=== PATIENT | female | born 1990 | race Caucasian/White ===

== ENCOUNTER 2019-02-10 21:18 | Inpatient (IN) | payer OTHER ==
[~2019-02-10] VITALS: Ht 161.3 cm; Wt 75.3 kg
[~2019-02-10 21:18] MED LIST: AMOX-559 PO; CEP500 PO; [UNRECOGNIZED DRUG - CODE]
[2019-02-10] MEDS ORDERED: DLR(*) 1000 ML BAG 1,000 ML IV PRN (21:20)
[2019-02-10] MEDS ORDERED: LR(*) 1000 ML BAG 1,000 ML IV PRN (21:20)
[2019-02-10 23:24] VITALS: BP 116/71
[2019-02-11] MEDS ORDERED: PROMETHAZINE 25 MG/ML 1 ML AMP IVP ONE (00:30)
[2019-02-11] MEDS ORDERED: MEPERIDINE 50 MG/ML SYR IM ONE (00:30)
[2019-02-11] MEDS ORDERED: OXYTOCIN 30 UNIT/D5LR 500 ML 500 ML IV PRN ×2 (00:58→07:19)
[2019-02-11] MEDS ORDERED: FAMOTIDINE(*) 20MG/50ML PREMIX 50 ML IVPB PRN (00:58)
[2019-02-11] MEDS ORDERED: LIDOCAINE 1% LOCAL 300 MG/30ML INJ PRN (01:00)
[2019-02-11] MEDS ORDERED: FLUSH 10 ML SYR IVP PRN (01:00)
[2019-02-11] MEDS ORDERED: LIDOCAINE/SOD BICARB 8.4% SYR SC PRN (01:00)
[2019-02-11] MEDS ORDERED: METOCLOPRAMIDE 10 MG/2 ML SDV IVP PRN (01:00)
[2019-02-11] MEDS ORDERED: PENICILLIN G 5 MILLUN/100 ML 100 ML IVPB ONE (01:00)
[2019-02-11] MEDS ORDERED: fentaNYL CITR 100 MCG/2 ML AMP IVP PRN (01:00)
--- NOTE | 2019-02-11 01:41 | History & Physical ---
History of Present Illness Age of Patient: 28 : 1 Para or TPAL: 0 EDC per LMP: Feb 18, 2019 EDC per U/S: Feb 18, 2019 Estimated Gestational Age: 39.0 Chief Complaint Contractions History of Present Illness This 28 yo at 39w0 days presented to the hospital with complaint of contractions beginning early this afternoon. Starting around 5pm the contractions became more frequent and stronger in nature. She reports her course has been uncomplicated. She is positive for GBS without any known allergies to PCN. She denies OSULLIVAN, CP, SOB, F/C, N/V, RUQ pain, changes in vision, vaginal bleeding or discharge, LOF. She reports good movement. She made minimal change while being assessed in the triage area. However as she is 39w0d, she would like to stay for induction of labor. History Group B Strep Screen: Positive Obstetrical History: Past Medical History: No known past medical history Allergies: Coded Allergies: No Known Allergies (Verified Allergy, Mild, 08/18/11) Family History: Patient reports no known family medical history. Med Rec Home Meds Active Scripts Amoxicillin/Pot Clav 875-125 Mg Tab (AUGMENTIN 875-125 TABLET) 1 Each Tablet, 1 TAB PO Q12H for 7 Days, #14 TAB Prov:SUSANNE DISLA MD 05/15/17 Reported Medications Isotretinoin (Isotretinoin) 50 Gm Powder, 40 MG 05/15/17 Review of Systems All Systems Reviewed/Normal: Yes Exam General Exam Vital Signs Vital Signs Date Time Temp Pulse Resp B/P (MAP) Pulse Ox O2 Delivery O2 Flow Rate FiO2 02/10/19 23:24 98.0 64 18 116/71 (86) 94 Room Air General Apperance: Alert/Awake/No Acute Distress Cardiovascular: Regular Rate and Rhythm Respiratory: No Respiratory Distress Abdomen: Gravid - Non-Tender : Normal Musculoskeletal: No Weakness/Pain Extremities: No Cyanosis,Clubbing or Edema Integumentary: Skin Intact without Lesions or Rash Psychological: Alert & Oriented X3, Appropriate Mood & Affect Cervical Dialation: 4 Cervical Effacement (%): 70 Cervical Consistency: Soft Cervical Position: Mid Station: -1 Presentation: Vertex Uterine Contractions(Q min): 5 Uterine Contraction Strength: Moderate UC Resting Tone: Soft Fetus Feeling Movement?: Yes Heart Tones: 125 Heart Tone Variabilty: Moderate FHT Accelerations: Present FHT Decelerations: None FHT Category: I Medical Decision Making Data Points Result Diagram: 02/11/19 0131 VTE Prophylasis: Adult Deep Vein Thrombosis/Pulmonary: No Pharmacological Contraindicati: Pt at Low Risk for VTE Mechanical Contraindications: Pt at Low Risk for VTE Assessment and Plan [employer]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
[2019-02-11] MEDS: LR(*) 1000 ML BAG 1,000 ML IV SCH ×2 (01:53→08:15)
[2019-02-11 01:54] LABS: PLATELET COUNT, AUTOMATED 196 K/uL (150-450)
[2019-02-11] MEDS: PENICILLIN G 2.5 MILLUN/100 ML 100 ML IVPB SCH ×2 (05:13→09:12)
[2019-02-11] MEDS ORDERED: LIDOCAINE/PF 2% 200MG/10ML AMP 200 MG/10 ML AMPUL EPI PRN ×2 (05:25→05:50)
[2019-02-11] MEDS ORDERED: FENTANYL/ROPIVACAINE 100 ML BAG EPI PRN ×2 (05:25→05:50)
[2019-02-11] MEDS ORDERED: fentaNYL CITR 100 MCG/2 ML AMP IT PRN ×2 (05:25→05:50)
[2019-02-11] MEDS ORDERED: LIDO/EPI 2% MPF 1:200,000 20ML EPI PRN ×2 (05:25→05:50)
[2019-02-11] MEDS ORDERED: BUPIVACAINE 0.25% MPF INJ EPI PRN ×2 (05:25→05:50)
[2019-02-11] MEDS ORDERED: BUPIVACAINE 0.5% INJ 30ML VIAL EPI PRN ×2 (05:25→05:50)
[2019-02-11] MEDS ORDERED: ePHEDrine 25 MG/5 ML DISP.SYR IVP ONE (05:45)
--- NOTE | 2019-02-11 06:48 | Procedure Note ---
Anesthetic Placement Note Anesthesia Plan: CSE Permit for Anesthesia Signed: Yes Anesthesia Technique: Patient Sitting Anesthesia Prep: Chlorhexidine Interspace: L 3-4 Local Anesthetic: 1% Lidocaine, 25 Gauge Needle Amount Local - cc's: 3 Anesthesia Needle: 17g Touhy/Schliff Anesthesia Attempts: 2 Loss of Resistance: Normal Saline Depth of ИРИНА (cm): 6 Epidural Needle Placement: No CSF, No Blood, No Parasthesia Intrathecal Needle: 27 Gauge Pencan Cerebral Spinal Fluid: Yes Catheter Insertion (cm): 5 Catheter Type: Christian - Spring Wound Epidural Dressing: Tegaderm, Tape, Adhesive [place] Anesthesia Medications: Intrathecal Dose: mcg Fentanyl (10), mg Marcaine MPF (2.5), Time (0611) Epidural Test Dose: 1.5 Lido/Epi (1:200,000), Dose - mL (5), Time (0613), Negative Epidural Infusion: 0.2% Ropivicaine, With Fentanyl 2mcg/ml, Start Time: (0626) Epidural Pump Setting: Bolus Dose - mL (3), Lockout - Minutes (15), Maintenance Rate - mL/hr (6), Maximum per Hour - mL (18) ULYSSES TEMPLETON CRNA Feb 11, 2019 06:48
--- NOTE | 2019-02-11 07:32 | Labor Progress Note ---
Labor Subjective Progress Notes Feeling Movement?: Yes Vaginal Discharge/Fluid: Clear Fluid Labor Pain: Comfortable Labor Objective Vital Signs Vital Signs Date Time Temp Pulse Resp B/P (MAP) Pulse Ox O2 Delivery O2 Flow Rate FiO2 02/10/19 23:24 98.0 64 18 116/71 (86) 94 Room Air Vaginal Discharge/Fluid?: Clear Fluid Cervical Dialation: 6 Cervical Effacement (%): 80 Cervical Consistency: Soft Cervical Position: Mid Station: -1 Presentation: Vertex Uterine Contractions(Q min): 3 Uterine Contraction Strength: Moderate UC Resting Tone: Soft Fetus Heart Tones: 120 Heart Tone Variabilty: Moderate FHT Accelerations: Present FHT Decelerations: None FHT Category: I General Exam General Appearance: Alert/Awake/No Acute Distress Other Result Diagram: 02/11/19 0131 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 Will start pitocin and recheck in 2 hours or sooner as needed. S/P epidural for pain control. ) ANA AYOUB MD Feb 11, 2019 07:32
--- NOTE | 2019-02-11 09:11 | Labor Progress Note ---
Labor Subjective Progress Notes Subjective Patient doing well and without complaint. Feeling Movement?: Yes Vaginal Discharge/Fluid: Bloody Show Labor Pain: Comfortable Eyes: No Visual Disturbances Labor Objective Vital Signs Vital Signs Date Time Temp Pulse Resp B/P (MAP) Pulse Ox O2 Delivery O2 Flow Rate FiO2 02/10/19 23:24 98.0 64 18 116/71 (86) 94 Room Air Cervical Dialation: 8 Cervical Effacement (%): 90 Cervical Consistency: Soft Cervical Position: Mid Station: 0 Presentation: Vertex Uterine Contractions(Q min): 2 Uterine Contraction Strength: Moderate UC Resting Tone: Soft Fetus Heart Tones: 120 Heart Tone Variabilty: Moderate FHT Accelerations: Present FHT Decelerations: None, Variable FHT Category: II Other Result Diagram: 02/11/19 0131 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 Baby is asynclitic. Will place mom on right side and hopefully change baby's position. Will recheck in 2 hours or sooner as needed. ) ANA AYOUB MD Feb 11, 2019 09:11
--- NOTE | 2019-02-11 11:30 | OB Delivery Note ---
Delivery Note Delivery Date: Feb 11, 2019 Delivery Time: 10:49 Estimated Gestational Age(wks): 39.0 Delivery Anesthesia: Epidural Sex: Male Infant Weight (gms): 3180 Apgars: 1 Minute (9), 5 Minute (9) Repair Needed: Laceration, Vaginal (right wall), Labial (Right), 1st Degree Estimated Blood Loss: 200 Notes: This 28 yo G1 now P1001 under epidural anesthesia progressed to complete and delivered a viable male infant at 1049 hrs. The baby was immediately placed skin to skin with the mother and his nose and mouth were bulb suctioned. No cord gases were collected. Cord blood was collected. The placenta delivered intact and complete with a three vessel cord at 1054 hrs. The perineum, cervix and vaginal mucosa were inspected and there was noted to be a right vaginal wall tear with extension into the right labia, and a 1st degree perineal tear. These tears were repaired in the usual manner with 3-0 vicryl. Tagging of laps N/A. Initial and final counts correct and verified by nursing staff. EBL of 200 cc. A/P: Mom and baby doing well. Will initiate care and orders. Edi Architect in Attendence: Yes ANA AYOUB MD Feb 11, 2019 11:29
[2019-02-11] MEDS ORDERED: LANOLIN OINT 7 GM TUBE TP PRN (11:50)
[2019-02-11] MEDS ORDERED: HYDROCORTISONE 2.5% CR 30GM TB PR PRN (11:50)
[2019-02-11] MEDS ORDERED: BENZOCAINE 20% 60 ML BTL TP PRN (11:50)
[2019-02-11] MEDS: DOCUSATE CALCIUM 240 MG CAP PO SCH ×2 (11:50→21:07)
[2019-02-11] MEDS ORDERED: MAGNESIUM HYDROXIDE* 30ML UDCP PO PRN (11:50)
[2019-02-11] MEDS ORDERED: GLYCERIN/WITCH HAZEL LEAF 1 PK TP PRN (11:50)
[2019-02-11] MEDS ORDERED: APAP/HYDROCODONE 325/5 TAB PO PRN (11:50)
[2019-02-11] MEDS: IBUPROFEN 800 MG TAB PO SCH ×2 (13:37→21:07)
[2019-02-11 14:00] VITALS: BP 106/50
[2019-02-11 14:36] VITALS: BP 106/50
[2019-02-11 15:06] VITALS: BP 108/56
[2019-02-11 18:10] VITALS: BP 114/54
[2019-02-11 19:30] VITALS: BP 125/67
[2019-02-11 23:05] VITALS: BP 103/68
[2019-02-12] VITALS (7 sets, daily range): BP systolic 103–139; BP diastolic 50–78
[2019-02-12] MEDS ORDERED: FAMOTIDINE 20 MG TAB PO PRN ×2 (03:25→03:40)
[2019-02-12] MEDS: IBUPROFEN 800 MG TAB PO SCH ×3 (05:59→20:56)
--- NOTE | 2019-02-12 08:04 | Anesthesia OB Pre-Anes Eval ---
History of Present Illness Anesthesia Start Date: Feb 11, 2019 Anesthesia Start Time: 06:08 OB Anesthesia Diagnosis: spontaneous labor EDC: Feb 18, 2019 : 1 Para: 0 Pain Ratin Result Diagram: 02/11/19 0131 Height (Inches): 63.5 Weight (Pounds): 166 Past Medical History Medical History: no pertinent history Surgical History: no surgical history Attended Childbirth Classes?: No Hx Anesthesia Reactions: No Hx Family Anesthesia Reaction: No Home Meds Active Scripts Amoxicillin/Pot Clav 875-125 Mg Tab (AUGMENTIN 875-125 TABLET) 1 Each Tablet, 1 TAB PO Q12H for 7 Days, #14 TAB Prov:SUSANNE DISLA MD 05/15/17 Reported Medications Isotretinoin (Isotretinoin) 50 Gm Powder, 40 MG 05/15/17 Allergies: Coded Allergies: No Known Allergies (Verified Allergy, Mild, 08/18/11) Anesthesia OB ROS Neurological: No migraines/headaches, No seizures, No neuropathy, No other ENT: Denies Tooth caps, Denies Loose teeth, Denies Chipped teeth, Denies Dentures, Denies Bridges, Denies Retainers, Denies Veneers, Denies Implants, Denies Tongue ring, Denies Other Pulmonary: No asthma, No smoker (pks/day/yrs), No other Airway Class: ll Cardiovascular ROS: No edema, No arrhythmia, No other GI ROS: clear liquids Last Solids Date: Feb 10, 2019 Last Solids Time: 18:30 ROS: No Herpes, No STD(s), No Liver Disease, No Renal Disease, No Other Endocrine ROS: No diabetes, No gestational diabetes, No thyroid disorder, No other Musculoskeletal ROS: No low back pain, No low back injury, No scoliosis, No other ASA Classification: 2 Assessment and Plan Anesthesia Plan: CSE Anesthesia Stop Day: Feb 11, 2019 Anesthesia Stop Time: 11:28 Epidural Catheter Removal: Yes Removal Date: Feb 11, 2019 Condition Stable ULYSSES TEMPLETON CRNA Feb 11, 2019 06:44
--- NOTE | 2019-02-12 08:05 | Anesthesia Post Eval Note ---
Anesthesia Post Eval Note Pt able to participate in Eval: Yes Cardiovascular Status: Satisfactory Respiratory Status: Satisfactory Pain Managment: Satisfactory PO Nausea/Vomiting: Satisfactory Temperature Management: Satisfactory Mental Status: Satisfactory Post-Op Hydration Status: Satisfactory Anesthesia Type: CSE Anesthesia Tolerance: Block worked well for labor and delivery. Denser block in left lower extremity and block in that leg resolved more slowly, but completely resolved now. ULYSSES TEMPLETON CRNA Feb 12, 2019 08:05
[2019-02-12] MEDS: DOCUSATE CALCIUM 240 MG CAP PO SCH ×2 (09:54→20:56)
--- NOTE | 2019-02-12 11:28 | OB/GYN Progress Note ---
OB Subjective Progress Notes GI: POS Flatus; NEG Nausea, NEG Vomiting, NEG Bowel Movement : Voiding Well Pain: Comfortable Neurological: No Headache, No Other Eyes: No Visual Disturbances OB Objective Physical Exam Vital Signs Date Time Temp Pulse Resp B/P (MAP) Pulse Ox O2 Delivery O2 Flow Rate FiO2 02/12/19 07:22 98.1 60 14 139/78 (98) 96 Room Air Intake and Output 02/12/19 07:00 Intake Total 3350 ml Output Total 4850 ml Balance -1500 ml Intake Oral 950 ml IV Total 2400 ml Output Urine Total 4850 ml General Appearance: Alert/Awake/No Acute Distress Neurological: No Gross deficits Respiratory: No Respiratory Distress Abdomen: Soft, Non-Tender, Non-Distended, Fundus Firm (Below umbilicus) Extremities: Edema (Mild) Integumentary: Skin Intact without Lesions or Rash Psychological: Alert & Oriented X3, Appropriate Mood & Affect Result Diagram: 02/12/19 0706 Assessment and Plan 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 Will keep in house for one more day. Likely discharge home tomorrow AM.) ANA AYOUB MD Feb 12, 2019 11:28
[2019-02-12] MEDS ORDERED: DIPHTH/TETANUS/ACEL. PERTUSSIS IM ONLY ONE (11:50)
[2019-02-12] MEDS ORDERED: INFLUENZA VIRUS VAC 0.5ML SYR IM ONLY ONE (11:50)
[2019-02-12] MEDS ORDERED: MEASLES,MUMP,RUBELLA VAC 0.5ML SUBQ ONE (11:50)
[2019-02-12] MEDS: ACETAMINOPHEN 325 MG TAB PO PRN ×2 (12:01→16:24)
[2019-02-13] MEDS: IBUPROFEN 800 MG TAB PO SCH (04:58)
[2019-02-13 07:03] VITALS: BP 116/66
--- NOTE | 2019-02-13 07:41 | OB/GYN Progress Note ---
OB Subjective Progress Notes Subjective Patient doing well this morning. She denies OSULLIVAN, CP, SOB, F/C, N/V, RUQ pain, changes in vision. Minimal vaginal bleeding. She has been up and ambulating. Voiding on her own. Tolerating PO diet. +flatus. Pain controlled. No questions or concerns. GI: POS Flatus : Voiding Well Pain: Comfortable, Tolerating PO Pain Meds OB Objective Physical Exam Vital Signs Date Time Temp Pulse Resp B/P (MAP) Pulse Ox O2 Delivery O2 Flow Rate FiO2 02/13/19 07:03 97.7 75 18 116/66 (83) 96 Room Air Intake and Output 02/13/19 07:00 Intake Total 1040 ml Output Total 2050 ml Balance -1010 ml Intake Oral 1040 ml Output Urine Total 2050 ml # Voids 1 General Appearance: Alert/Awake/No Acute Distress Neurological: No Gross deficits Respiratory: No Respiratory Distress Abdomen: Soft, Non-Tender, Non-Distended, Fundus Firm (Below umbilicus) Extremities: No Cyanosis,Clubbing or Edema, Edema (Mild) Integumentary: Skin Intact without Lesions or Rash Psychological: Alert & Oriented X3, Appropriate Mood & Affect Result Diagram: 02/12/19 0706 Assessment and Plan 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 She will discharge home today.) TRACK RIDER Plan: Discharge Home Today ANA AYOUB MD Feb 13, 2019 07:41
--- NOTE | 2019-02-13 08:11 | OB/GYN Discharge Summary ---
Discharge Summary Reason for Hosp/Final Diag: (1) state Onset Date: ~ 02/11/2019 Status: Resolved Hospital Course & Plan: Patient was admitted to the hospital in active labor for management. She was given appropriate antibiotics for her GBS positivity. Under epidural anesthesia she progressed to complete and gave to a viable male infant. For further details please she the delivery summary. While receiving care her hospital course remained unremarkable. As she was meeting all of her hospital milestones on day #2, she was discharged home in stable condition. Lates Vital Signs Vital Signs Date Time Temp Pulse Resp B/P (MAP) Pulse Ox O2 Delivery O2 Flow Rate FiO2 02/13/19 07:03 97.7 75 18 116/66 (83) 96 Room Air Weight (Pounds): 166 Result Diagram: 02/12/1906 Condition: Improved Discharge: Home Consults None Home Meds Active Scripts Amoxicillin/Pot Clav 875-125 Mg Tab (AUGMENTIN 875-125 TABLET) 1 Each Tablet, 1 TAB PO Q12H for 7 Days, #14 TAB Prov:SUSANNE DISLA MD 05/15/17 Reported Medications Isotretinoin (Isotretinoin) 50 Gm Powder, 40 MG 05/15/17 Follow up with: Dr. Will [phone] Follow up in: 6 wks PP or PO Discharge Diet: As Tolerates Discharge Activity: As Tolerates, Pelvic Rest (Nothing in the vagina for 6 wee ks and no intercourse for 6 weeks. ) Special Instructions: Return to the clinic or ER if you have any severe abdominal pain not relieved with Tylenol or Ibuprofen, severe nausea or vomiting with the inability to keep down solids or liquids, fever greater than 100.1, or any other concerns. Copies to: ALEKSANDRA WILL MD ; ANA AYOUB MD Feb 13, 2019 08:11
[2019-02-13] MEDS: DOCUSATE CALCIUM 240 MG CAP PO SCH (09:00)
== END 2019-02-13 10:27 | disposition home or self-care (01) | DRG 807 ==
LOC: OB 21:18 → OBSVTOIN 02-11
PROVIDERS: ADMIT Obstetrics & Gynecology; ATTEND Obstetrics & Gynecology
PROC: 10E0XZZ Delivery of Products of Conception, External Approach (ICD-10-PCS; principal; 2019-02-11)
PROC: 10907ZC Drainage of Amniotic Fluid, Therapeutic from Products of Conception, Via Natural or Artificial Opening (ICD-10-PCS; 2019-02-11)
PROC: 0HQ9XZZ Repair Perineum Skin, External Approach (ICD-10-PCS; 2019-02-11)
DX: O70.0 First degree perineal laceration during delivery (principal); Z37.0 Single live birth; Z3A.39 39 weeks gestation of pregnancy; O32.1XX0 Maternal care for breech presentation, not applicable or unspecified; O99.824 Streptococcus B carrier state complicating childbirth
CPT/HCPCS: 36415; 85025; 85027; 86703; 86850; 86900; 86901; G0378; G0379; J2540; J2590; J3010; J7120